=== PATIENT | male | born 1980 ===

== ENCOUNTER 2020-01-12 08:31 | Day surgery (SDC) | payer OTHER ==
[2020-01-12] VITALS (7 sets, daily range): BP systolic 112–132; BP diastolic 53–96
[~2020-01-12] VITALS: Ht 170.2 cm; Wt 74.0 kg
[~2020-01-12 08:31] MED LIST: CAPS42.514 TOP; IBUP-1985 PO; clindamycin-Cleocin 900mg/D5W 50 ML IV ONE; famotidine 20mg tablet PO ONE; ringers solution, lacted 1,000 ML IV SCH; vancomycin 1,500 MG in NS 300ml IV soln IV ONE
[2020-01-12] MEDS ORDERED: ceFAZolin 1000mg inj ONE (09:47)
[2020-01-12] MEDS ORDERED: ROPIVAcaine 0.5% (5mg/ml) 30ml vial ONE ×2 (09:47→11:41)
[2020-01-12] MEDS ORDERED: sevoflurane 250ml liquid IH ONE (11:08)
[2020-01-12] MEDS ORDERED: cloNIDine hcl/PF 100mcg/ml inj ONE (11:14)
[2020-01-12] MEDS ORDERED: fentaNYL/PF 50MCG/1 ML 2ML syringe ONE (11:15)
[2020-01-12] MEDS ORDERED: midazolam 2 mg/2 ml injection ONE (11:16)
[2020-01-12] MEDS ORDERED: ondansetron/PF 4mg/2ml inj ONE ×2 (11:41)
[2020-01-12] MEDS ORDERED: LIDOcaine 2% (20mg/ml) 5ml vial ONE (11:41)
[2020-01-12] MEDS ORDERED: propofol inj 20 ML IV ONE (11:41)
[2020-01-12] MEDS ORDERED: dexamethasone sod phosphate 4mg/ml inj. ONE (11:41)
[2020-01-12] MEDS ORDERED: morphine 4 MG/ML inj SYRINge IV PRN (12:20)
[2020-01-12] MEDS ORDERED: ketorolac trometh. 30mg/ml inj. IV ONE (12:20)
[2020-01-12] MEDS ORDERED: morphine 2 MG/ML inj. syringe IV PRN (12:20)
[2020-01-12] MEDS ORDERED: ondansetron/PF 4mg/2ml inj IV PRN (12:20)
[2020-01-12] MEDS ORDERED: hydrALAZINE 20mg/ml inj. IV PRN (12:20)
[2020-01-12] MEDS ORDERED: proCHLORperazine 10 MG/2 ml inj IV PRN (12:20)
[2020-01-12] MEDS ORDERED: meperidine/PF 25mg/ml syringe IV PRN ×2 (12:20)
[2020-01-12] MEDS ORDERED: labetalol 20mg/4ml (5mg/ml) syringe IV PRN (12:20)
[2020-01-12] MEDS ORDERED: ringers solution, lacted 1,000 ML IV SCH (12:20)
[2020-01-12] MEDS ORDERED: acetaminophen 1,000mg/100ml IV 100 ML IV PRN ×2 (12:20→13:45)
--- NOTE | 2020-01-12 13:00 | NUR ---
Received from OR via [facility] , accompanied by Anesthesiologist LIZZIE and report given by Anesthesiolgist. PATIENT WITH DEIDRA BRACE AND FAWAD DRESSING TO RIGHT LE. + DP, 10L MASK ON WITH 100% SATURATIONS. 20G PIV IN LEFT UE RUNNING LR AT 100. 2 GAURDS WITH PATIENT. Addendum: 01/12/20 at 1310 by Edson Ochoa RN, RN Amended: Links added.
[2020-01-12] MEDS: meperidine/PF 25mg/ml syringe IV PRN ×2 (13:12→14:04)
--- NOTE | 2020-01-12 14:00 | NUR ---
PATIENT AND JOSE LUISRAY HAVE VERBALIZED UNDERSTANDING, OPPORTUNITY TO ASK QUESTIONS GIVEN AND PATIENT COMFORTABLE WITH DC. IV TAKEN OUT WITHOUT COMPLICATION. PATIENT HAS MET ALL DC CRITERIA FOR DC BACK TO FACILITY. I HAVE GIVEN RFS TO ASIA AND PATIENT TAKEN OUT VIA WHEELCHAIR WHERE PATIENT WAS TAKEN HOME WITH ALL BELONGINGS. FAMILY GAVE PATIENT TRANSPORT HOME. Addendum: 01/12/20 at 1435 by Edson Ochoa RN, RN Amended: Links added.
== END 2020-01-12 14:00 ==
LOC: PAS 08:31 → EEVIPCON 11:00 → PAS 14:00
PROVIDERS: ATTEND Orthopaedic Surgery
DX: S83.511A Sprain of anterior cruciate ligament of right knee, initial encounter (principal); Z86.19 Personal history of other infectious and parasitic diseases; G89.18 Other acute postprocedural pain; Z79.899 Other long term (current) drug therapy; Z88.0 Allergy status to penicillin; X58.XXXA Exposure to other specified factors, initial encounter; Y93.89 Activity, other specified; Y92.89 Other specified places as the place of occurrence of the external cause; Y99.8 Other external cause status
CPT/HCPCS: 29888; 64447; 76937; 76942; 82948; C1713; C1762; J0690; J0735; J1100; J1885; J2001; J2175; J2250; J2270; J2405; J2704; J3010; J3370; J7040; J7120; L1832; A4215; A4618; A6449; A7000; J2795; J3490